=== PATIENT | female | born 1985 | race Caucasian/White ===

== ENCOUNTER 2017-08-01 14:26 | Emergency (ER) | payer BC ==
[~2017-08-01] VITALS: Ht 160 cm; Wt 93.0 kg
--- NOTE | ~2017-08-01 | EKG ---
[place], [place] ELECTROCARDIOGRAM REPORT NAME: MARCELINO SHORE UNIT #: [id number] ROOM: DOCTOR: CODEY CALVIN MD BIRTHDATE: [birth year] DOS: 08/01/2017 TIME: 1702 hours. Normal sinus rhythm at 62 beats per minute. Prolonged QT interval. Minimal ST segment depression in lateral chest leads is noted. An abnormal ECG. No previous tracing is available for comparison. CODEY CALVIN MD CM:EKGRPT:ELECTROCARDIOGRAM REPORT [id number] CODEY CALVIN MD
[~2017-08-01 14:26] MED LIST: LEXAPRO5 M1 PO; SUBOXONE 12 MG1 EACH SL; WELLBUTRIN75 MG PO; XANAX1 MG PO
[2017-08-01] MEDS ORDERED: ZESTORETIC 20-1 EACH PO (14:49)
[2017-08-01 15:11] LABS: HEMOGLOBIN 13.6 g/dl (12.0-16.0); MEAN CELL VOLUME 82.6 fl (81.0-99.0); MEAN CORPUSCULAR HGB 28.1 pg (27.0-31.0); MEAN PLATELET VOLUME 11.4 fl (9.6-12.3); PLATELET COUNT AUTOMATED 162 10*3/uL (130-400); RED BLOOD COUNT 4.84 10*6/uL (4.10-5.10); RED CELL DISTRI WIDTH 14.4 % (0-14.5); WHITE BLOOD COUNT 12.6 10*3/uL (4.8-10.8)
[2017-08-01 15:11] LABS: BILIRUBIN 3+ (NEGATIVE); BLOOD NEGATIVE (NEGATIVE); CLARITY CLOUDY (CLEAR); GLUCOSE TRACE (NEGATIVE); KETONE 1+ (NEGATIVE); LEUKO ESTERASE TRACE (NEGATIVE); NITRITE POSITIVE (NEGATIVE); PH 6.5 (5.0-9.0); SPECIFIC GRAVITY 1.025 (1.005-1.030)
[2017-08-01 15:26] LABS: LIPASE 270 U/L (73-393)
[2017-08-01 15:30] LABS: ALBUMIN 2.7 gm/dl (3.1-4.5); ALKALINE PHOSPHATASE 208 U/L (45-117); BUN 14 mg/dl (7-24); CHLORIDE 92 mmol/L (98-107); POTASSIUM 2.5 mmol/L (3.5-5.1); SODIUM 135 mmol/L (136-145); TOTAL PROTEIN 6.2 gm/dL (6.4-8.2)
[2017-08-01 15:33] LABS: BACTERIA 2+; COLOR BROWN (YELLOW); EPITHELIAL CELLS TNTC; RBC 0-2 rbc/hpf (0-2); WBC TNTC wbc/hpf (0-5)
[2017-08-01 15:37] LABS: SGOT/AST 1919 IU/L (3-35); SGPT/ALT 1640 U/L (12-78)
[2017-08-01 15:39] LABS: ATYPICAL LYMPHS 7 % (0-0); BASOPHILS 1 % (0-1); TOTAL CELLS COUNTED 100 #CELLS
[2017-08-01 15:40] LABS: BURR CELLS FEW; PLATELET SUFFICIENCY NORMAL (NORMAL)
[2017-08-01 18:30] LABS: ACT PARTIAL THROMBO TIME 21.8 SECONDS (20.8-31.5); INTERNATIONAL NORM RATIO 1.2 (2.0-3.5)
[2017-08-02 09:05] LABS: HEPATITIS B SURFACE AG Negative (Negative)
[2017-08-02 10:15] LABS: HEPATITIS C VIRUS ANTIBODY >11.0 s/co (0.0-0.9)
== END 2017-08-01 23:54 | disposition short-term general hospital (02) ==
LOC: ED 14:26
PROVIDERS: Nurse Practitioner
DX: A41.9 Sepsis, unspecified organism (principal); K72.00 Acute and subacute hepatic failure without coma; R79.89 Other specified abnormal findings of blood chemistry; E87.6 Hypokalemia; Z88.0 Allergy status to penicillin; Z88.1 Allergy status to other antibiotic agents; Z72.0 Tobacco use

== ENCOUNTER 2018-09-18 10:41 | Inpatient (IN) | payer OTHER ==
[~2018-09-18] VITALS: Ht 160 cm; Wt 107.3 kg
--- NOTE | ~2018-09-18 | EKG ---
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
[~2018-09-18 10:41] MED LIST changes: +ZESTORETIC 20-1 EACH PO
--- NOTE | 2018-09-18 11:45 | NUR ---
33 year old FEMALE admitted to room # 518 for stabilization. 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 Compliant with admission procedure. Patient denies any anxiety, but is unable to sit still, taps toes to floor continuously, looks about room, unable to focus eyes on nurse during interview. See assessment forms for additional information about patient status.
[2018-09-18] MEDS ORDERED: PROTONIX20 MG PO (12:06)
[2018-09-18] MEDS ORDERED: PREVACID15 M1 PO (12:06)
[2018-09-18] MEDS ORDERED: LEXAPRO20 MG PO (12:06)
--- NOTE | 2018-09-18 12:19 | NUR ---
PATIENT MEETS [facility]. CINA=15. PATIENT WANTS TO FOLLOW UP WITH [facility] FOR HER AFTERCARE PLAN. CALE HESTER B.A. ENGINEER/CONDUCTOR
[2018-09-18 13:13] LABS: BASO # 0.1 10*3/uL (0.0-0.1); BASO % 0.9 % (0.0-1.0); EOS # 0.1 10*3/uL (0.0-0.4); EOS % 1.7 % (1.0-4.0); HEMATOCRIT 38.6 % (37.0-47.0); HEMOGLOBIN 12.1 g/dl (12.0-16.0); LYMPH # 2.6 10*3/uL (1.3-4.4); LYMPH % 41.1 % (27.0-41.0); MEAN CORPUSCULAR HGB 26.7 pg (27.0-31.0); MEAN CORPUSCULAR HGB CONC 31.3 g/dl (33.0-37.0); MONO # 0.5 10*3/uL (0.1-1.0); MONO % 7.4 % (3.0-9.0); NEUT # 3.1 10*3/uL (2.3-7.9); NEUT % 48.7 % (47.0-73.0); PLATELET COUNT AUTOMATED 346 10*3/uL (130-400); RED BLOOD COUNT 4.54 10*6/uL (4.10-5.10); RED CELL DISTRI WIDTH 14.6 % (0-14.5); WHITE BLOOD COUNT 6.3 10*3/uL (4.8-10.8)
[2018-09-18 13:22] LABS: INTERNATIONAL NORM RATIO 0.9 (2.0-3.5)
[2018-09-18 13:28] LABS: ALBUMIN 3.3 gm/dl (3.1-4.5); ALKALINE PHOSPHATASE 82 U/L (45-117); BUN 8 mg/dl (7-24); CHLORIDE 105 mmol/L (98-107); CREATININE 0.82 mg/dL (0.55-1.02); POTASSIUM 4.7 mmol/L (3.5-5.1); SGOT/AST 12 IU/L (3-35); SGPT/ALT 24 U/L (12-78); SODIUM 139 mmol/L (136-145); TOTAL PROTEIN 7.7 gm/dL (6.4-8.2)
[2018-09-18 13:34] LABS: BETA-HCG, QUANT < 1.0 mIU/mL (1-3); ETHYL ALCOHOL < 3.0 mg/dl (<3)
[2018-09-18 13:47] LABS: BILIRUBIN NEGATIVE (NEGATIVE); BLOOD NEGATIVE (NEGATIVE); CLARITY CLEAR (CLEAR); COLOR YELLOW (YELLOW); GLUCOSE NEGATIVE (NEGATIVE); KETONE NEGATIVE (NEGATIVE); LEUKO ESTERASE NEGATIVE (NEGATIVE); NITRITE NEGATIVE (NEGATIVE); PH 6.5 (5.0-9.0); SPECIFIC GRAVITY <= 1.005 (1.005-1.030); UROBILINOGEN 0.2 E.U./dl (0.2-1.0)
[2018-09-18 13:49] LABS: URINE AMPHETAMINES < 1000 (1000ng/ml); URINE BARBITURATES < 200 (200ng/ml); URINE BENZODIAZEPINES < 200 (200ng/ml); URINE CANNABINOIDS (THC) < 50 (50ng/ml); URINE COCAINE < 300 (300ng/ml); URINE METHADONE < 300 (300ng/ml); URINE OPIATES < 300 (300ng/ml)
[2018-09-18 13:51] LABS: URINE PHENCYCLIDINE < 25 (25ng/ml)
[2018-09-18 13:53] LABS: RBC 0-2 rbc/hpf (0-2); WBC 0-2 wbc/hpf (0-5)
[2018-09-18 14:30] VITALS: BP 143/90
--- NOTE | 2018-09-18 17:02 | NUR ---
WENT TO PT ROOM TO CHECK ON PT, NO LONGER IN ROOM, ALL BELONGING GONE. PT UNABLE TO BE LOCATED ON FLOOR. AMA DISCHARGE AT THIS TIME. LAV CREWMAN, CHARGE NURSE, DOCTOR NOTIFIED OF PT.
== END 2018-09-18 17:02 | disposition left against medical advice (07) | DRG 894 ==
LOC: 5E 10:41
PROVIDERS: Registered Nurse; ADMIT Internal Medicine
DX: F11.23 Opioid dependence with withdrawal (principal); E44.0 Moderate protein-calorie malnutrition; J20.9 Acute bronchitis, unspecified; F17.210 Nicotine dependence, cigarettes, uncomplicated; B19.20 Unspecified viral hepatitis C without hepatic coma; R73.9 Hyperglycemia, unspecified; Z53.21 Procedure and treatment not carried out due to patient leaving prior to being seen by health care provider; Z71.6 Tobacco abuse counseling; Z90.49 Acquired absence of other specified parts of digestive tract; Z98.891 History of uterine scar from previous surgery; Z88.0 Allergy status to penicillin; Z88.1 Allergy status to other antibiotic agents; Z88.8 Allergy status to other drugs, medicaments and biological substances; Z85.43 Personal history of malignant neoplasm of ovary; Z82.49 Family history of ischemic heart disease and other diseases of the circulatory system